=== PATIENT | male | born 1960 | race Caucasian/White ===

== ENCOUNTER 2024-01-05 09:37 | Emergency (ER) | payer OTHER ==
[~2024-01-05] VITALS: Ht 182.9 cm; Wt 81.6 kg
[2024-01-05 10:08] VITALS: BP 138/80; TEMP 98.6; O2SAT 98
== END 2024-01-05 10:13 | disposition home or self-care (01) ==
LOC: ER 09:37
DX: S09.8XXA Other specified injuries of head, initial encounter (principal); I10 Essential (primary) hypertension; E78.5 Hyperlipidemia, unspecified; Z60.2 Problems related to living alone; W07.XXXA Fall from chair, initial encounter; Y93.89 Activity, other specified; Y92.89 Other specified places as the place of occurrence of the external cause; Y99.8 Other external cause status

== ENCOUNTER 2025-02-09 17:43 | Emergency (ER) | payer MEDICAID, OTHER ==
[~2025-02-09] VITALS: Ht 182.9 cm; Wt 79.4 kg
[2025-02-09 17:45] VITALS: BP 168/100; TEMP 98.3
[2025-02-09 18:31] VITALS: O2SAT 100
== END 2025-02-09 18:31 | disposition home or self-care (01) ==
LOC: ER 17:48
DX: I48.91 Unspecified atrial fibrillation (principal); I10 Essential (primary) hypertension; F41.0 Panic disorder [episodic paroxysmal anxiety]